=== PATIENT | male | born 1955 | race Caucasian/White ===

== ENCOUNTER 2024-10-30 06:17 | Day surgery (SDC) | payer MEDICARE, SELFPAY ==
[2024-10-30] VITALS (7 sets, daily range): BP systolic 122–136; BP diastolic 76–83; BMI 31.0
[2024-10-30] MEDS: NORMOSOL-R/PLASMALYTE-A 1000 IV (08:23)
[2024-10-30] MEDS: CELEBREX 200 MG PO (08:23)
[2024-10-30] MEDS: TYLENOL 1000 MG PO (08:24)
== END 2024-10-30 12:35 | disposition home or self-care (01) ==
LOC: SDS 06:17
PROVIDERS: ATTENDING PHYSICIAN Specialist
DX: M75.102 Unspecified rotator cuff tear or rupture of left shoulder, not specified as traumatic (principal); M94.212 Chondromalacia, left shoulder
CPT/HCPCS: 29822; C9781; C1889